=== PATIENT | female | born 1955 | race Caucasian/White ===

== ENCOUNTER 2016-09-07 12:45 | Inpatient (IN) | payer OTHER ==
[~2016-09-07] VITALS: Ht 162.6 cm; Wt 119.5 kg
[2016-09-07] MEDS ORDERED: ASPIRIN 81 MG CHEW TAB ONE (13:09)
[2016-09-07] MEDS ORDERED: SODIUM CHLORIDE 0.9% 1,000 ML ONE (15:21)
[2016-09-07] MEDS ORDERED: MAGNESIUM SULF (ER) 100 ML IV ONE ×2 (15:21→16:37)
[2016-09-07] MEDS: LACT RINGERS 1,000 ML IV SCH (17:57)
[2016-09-07 18:36] VITALS: BP_SYST 109; RESP 16; TEMP 97.9
[2016-09-07 18:39] VITALS: Ht 162.6 cm; Wt 119.5 kg
[2016-09-07] MEDS ORDERED: PHARMACY TO DOSE LEVAQUIN IV SCH (19:40)
[2016-09-07] MEDS ORDERED: LEVOFLOXACIN 750 MG/150 ML 150 ML IV SCH (19:50)
[2016-09-07] MEDS ORDERED: DEXTROSE 50% SYRINGE 50 ML IV PRN (20:05)
[2016-09-07] MEDS ORDERED: GLUCAGON 1 MG VIAL IM PRN (20:05)
[2016-09-07 21:08] VITALS: BP_SYST 107; RESP 18; TEMP 98.6
[2016-09-07] MEDS: TRAZODONE 100 MG TAB PO SCH (21:15)
[2016-09-07] MEDS: DULoxetine 30 MG CAP PO SCH (21:15)
[2016-09-07] MEDS: TEMAZEPAM 15 MG CAP PO SCH (21:18)
[2016-09-07 23:42] VITALS: BP_SYST 114; RESP 18; TEMP 98.3
[2016-09-07] MEDS: MAGNESIUM SULF 1 GM/100 ML 100 ML IV SCH (23:53)
[2016-09-08] MEDS: MAGNESIUM SULF 1 GM/100 ML 100 ML IV SCH ×3 (01:58→11:00)
[2016-09-08] MEDS: METRONIDAZOLE 500MG/100ML 100 ML IV SCH ×4 (02:15→23:22)
[2016-09-08 03:35] VITALS: BP_SYST 112; RESP 18; TEMP 98
[2016-09-08] MEDS: LEVOTHYROXINE 0.075 MG TAB PO SCH (06:05)
[2016-09-08 07:22] VITALS: BP_SYST 106; RESP 20; TEMP 98.2
[2016-09-08] MEDS ORDERED: KCL CR 20 MEQ TAB PO STA (09:07)
[2016-09-08] MEDS: KCL CR 10 MEQ TAB PO SCH (09:25)
[2016-09-08] MEDS: DULoxetine 30 MG CAP PO SCH ×2 (09:25→20:20)
[2016-09-08] MEDS ORDERED: KCL CR 20 MEQ TAB PO ONE (11:10)
[2016-09-08 11:36] VITALS: BP_SYST 118; RESP 20; TEMP 98.1
[2016-09-08] MEDS: LEVOFLOXACIN 750 MG/150 ML 150 ML IV SCH (12:09)
[2016-09-08] MEDS: LACT RINGERS 1,000 ML IV SCH (13:47)
[2016-09-08] MEDS ORDERED: OXYCODONE/APAP 7.5/325 TAB PO PRN (14:00)
[2016-09-08 15:14] VITALS: BP_SYST 139; RESP 20; TEMP 98.2
[2016-09-08] MEDS: GABAPENTIN 400 MG CAP PO SCH ×2 (16:23→20:20)
[2016-09-08 19:46] VITALS: BP_SYST 132; RESP 20; TEMP 98.3
[2016-09-08] MEDS: TRAZODONE 100 MG TAB PO SCH (20:20)
[2016-09-08] MEDS: TEMAZEPAM 15 MG CAP PO SCH (20:20)
[2016-09-09] MEDS: LEVOTHYROXINE 0.075 MG TAB PO SCH (07:27)
[2016-09-09 07:36] VITALS: BP_SYST 125; RESP 20; TEMP 98
[2016-09-09] MEDS: METRONIDAZOLE 500MG/100ML 100 ML IV SCH (07:44)
[2016-09-09] MEDS ORDERED: KCL CR 20 MEQ TAB PO ONE (08:35)
[2016-09-09] MEDS ORDERED: ENOXAPARIN 40 MG/0.4 ML SYR SUBQ SCH (09:00)
[2016-09-09] MEDS: LEVOFLOXACIN 750 MG/150 ML 150 ML IV SCH (09:31)
[2016-09-09] MEDS: DULoxetine 30 MG CAP PO SCH (09:31)
[2016-09-09] MEDS: GABAPENTIN 400 MG CAP PO SCH (09:32)
[2016-09-09] MEDS: KCL CR 10 MEQ TAB PO SCH (09:32)
[2016-09-09] MEDS ORDERED: MISSING DOSE XX ONE (10:15)
[2016-09-09 11:04] VITALS: BP_SYST 125; RESP 20; TEMP 98.5
[2016-09-09] MEDS: MAGNESIUM SULF 1 GM/100 ML 100 ML IV SCH ×2 (11:19→12:42)
[2016-09-09 13:42] VITALS: BP_SYST 111; RESP 16; TEMP 98.4
[2016-09-09 14:12] VITALS: BP_SYST 111; RESP 16; TEMP 98.4
== END 2016-09-09 15:03 | disposition home or self-care (01) | DRG 683 ==
LOC: ENRESERVTM → ENRESERVDT → ER 12:45 → EMR 16:53 → 4NT 17:40 → OBSVTOIN 09-08 15:17 → ENPENDDIS 09-08 15:17
PROVIDERS: ADMIT Internal Medicine; ATTEND Internal Medicine
DX: N17.9 Acute kidney failure, unspecified (principal); Z68.41 Body mass index [BMI] 40.0-44.9, adult; I10 Essential (primary) hypertension; N39.0 Urinary tract infection, site not specified; A08.4 Viral intestinal infection, unspecified; E83.42 Hypomagnesemia; E86.1 Hypovolemia; E87.6 Hypokalemia; E03.9 Hypothyroidism, unspecified; G89.29 Other chronic pain; K21.9 Gastro-esophageal reflux disease without esophagitis; E11.9 Type 2 diabetes mellitus without complications; F32.9 Major depressive disorder, single episode, unspecified; E66.01 Morbid (severe) obesity due to excess calories; Z96.651 Presence of right artificial knee joint; Z79.84 Long term (current) use of oral hypoglycemic drugs
CPT/HCPCS: 36415; 71010; 74176; 80048; 80053; 81001; 82550; 82947; 83735; 84484; 85025; 85610; 85730; 87040; 87045; 87046; 87088; 87493; 93005; 96361; 96374; 99219; 99232; 99238